=== PATIENT | male | born 1960 ===

== ENCOUNTER 2017-01-01 17:24 | Emergency (ER) | payer BC, OTHER ==
[2017-01-01 17:24] VITALS: BMI 26.6
--- NOTE | 2017-01-01 19:36 | C.PDOC ---
History Of Present Illness Patient presents with dull throbbing headache, mild photophobia. Has had similar symptoms about 3 weeks, for which he was worked up, including a negative head ct. Pt in 01/07 discomfort. Speaking in complete sentences, no neurological deficit Time Seen by Provider: 01/01/17 19:35 Chief Complaint (Nursing): Headache History Per: Patient History/Exam Limitations: no limitations Onset/Duration Of Symptoms: Days Current Symptoms Are (Timing): Still Present Severity: Moderate Pain Scale Rating Of: 4 Quality: Dull Preceeding Symptoms: None Associated Symptoms: Photophobia (mild) Recent travel outside of the [place]: No Additional History Per: Patient Past Medical History Reviewed: Historical Data, Nursing Documentation, Vital Signs Vital Signs: Last Vital Signs Temp 98.6 F 01/01/17 20:43 Pulse 82 01/01/17 20:43 Resp 16 01/01/17 20:43 BP 155/83 H 01/01/17 20:43 Pulse Ox 99 01/01/17 20:43 - Medical History PMH: Diabetes, HTN, Hypercholesterolemia Denies: Chronic Kidney Disease Family History: States: No Known Family Hx - Social History Hx Tobacco Use: No Hx Alcohol Use: Yes Hx Substance Use: No - Immunization History Hx Tetanus Toxoid Vaccination: No Hx Influenza Vaccination: No Hx Pneumococcal Vaccination: No Review Of Systems Constitutional: Negative for: Fever, Chills Eyes: Negative for: Redness (r eye only) Cardiovascular: Negative for: Chest Pain Respiratory: Negative for: Shortness of Breath Gastrointestinal: Negative for: Nausea, Vomiting Genitourinary: Negative for: Dysuria Musculoskeletal: Negative for: Back Pain Skin: Negative for: Rash, Lesions, Jaundice, Bruising Neurological: Positive for: Headache. Negative for: Weakness Psych: Negative for: Anxiety Physical Exam - Physical Exam Appears: Non-toxic, No Acute Distress Skin: Warm, Dry Eye(s): right: Normal Inspection, PERRL, EOMI, left: Other (blind due to trauma) Oral Mucosa: Moist Neck: Supple Chest: Symmetrical Cardiovascular: Rhythm Regular Respiratory: No Rales, No Rhonchi, No Wheezing Gastrointestinal/Abdominal: Soft, No Tenderness Extremity: Normal ROM Extremity: Bilateral: Atraumatic, Normal Color And Temperature, Normal ROM Neurological/Psych: Oriented x3, Normal Speech, Normal Cognition Gait: Steady ED Course And Treatment - Laboratory Results Result Diagrams: 01/01/17 20:29 01/01/17 20:29 O2 Sat by Pulse Oximetry: 100 Pulse Ox Interpretation: Normal Progress Note: blood work, ivf, steroids, toradol Reevaluation Time: 21:09 Reassessment Condition: Improved Medical Decision Making Medical Decision Making: Upon provider reevaluation patient is feeling better, is medically stable, and requires no further treatment in the ED at this time. Patient will be discharged home with Rx for zofran . Counseling was provided and all questions were answered regarding diagnosis and need for follow up with dr rajput. There is agreement to discharge plan. Return if symptoms persist or worsen. Disposition Counseled Patient/Family Regarding: Studies Performed, Diagnosis, Need For Followup, Rx Given - Disposition Referrals: Rachel Frey MD [Non-Staff] - Disposition: HOME/ ROUTINE Disposition Time: 19:35 Condition: FAIR Additional Instructions: Please return if symptoms recur Prescriptions: Ondansetron ODT [Zofran ODT] 1 odt PO TID #10 odt Instructions: Migraine Headache (ED) - Clinical Impression Clinical Impression: Migraine
[2017-01-01] MEDS ORDERED: Sodium Chloride 0.9% 1,000 ML IV ONE (20:00)
[2017-01-01] MEDS ORDERED: Sodium Chloride 0.9% 1,000 ML ONE (20:09)
[2017-01-01 20:35] LABS: BASO # 0.1 K/uL (0.0-0.2); EOS # 0.1 K/uL (0.0-0.7); EOS % 2.2 % (0.0-4.0); HEMATOCRIT 38.6 % (35.0-51.0); LYMPH # 1.8 K/uL (1.0-4.3); LYMPH % 31.4 % (20.0-40.0); MEAN CORPUSCULAR HEMOGLOBIN 28.7 pg (27.0-31.0); MEAN CORPUSCULAR HGB CONC 33.8 g/dL (33.0-37.0); MEAN PLATELET VOLUME 8.2 fL (7.2-11.7); MONO # 0.4 K/uL (0.0-0.8); MONO % 6.2 % (0.0-10.0); RED CELL DISTRIBUTION WIDTH 13.4 % (11.5-14.5); WHITE BLOOD COUNT 5.8 K/uL (4.8-10.8)
[2017-01-01 20:42] LABS: RBC URINE < 1 /hpf (0-3); URINE BILIRUBIN NEGATIVE (NEGATIVE); URINE BLOOD NEGATIVE (NEGATIVE); URINE COLOR Straw (YELLOW); URINE GLUCOSE (UA) 3+ mg/dL (Normal); URINE KETONE NEGATIVE (NEGATIVE); URINE LEUKOCYTE ESTERASE NEG Leu/uL (Negative); URINE PROTEIN NEGATIVE (NEGATIVE); URINE UROBILINOGEN NORMAL mg/dL (0.2-1.0); WBC URINE < 1 /hpf (0-5)
[2017-01-01 20:46] VITALS: PULSE 82; RESP 16; TEMP 98.6
[2017-01-01 20:54] LABS: CHLORIDE 92 mmol/L (98-107)
[2017-01-01 20:55] LABS: POTASSIUM 4.1 mmol/L (3.6-5.2); SODIUM 132 mmol/L (132-148)
[2017-01-01 20:57] LABS: ALB/GLOB RATIO 1.5 (1.0-2.1); AST/SGOT 44 U/L (17-59); BILIRUBIN,TOTAL 0.5 mg/dL (0.2-1.3); CARBON DIOXIDE 24 mmol/L (22-30); GFR AFRICAN-AMERICAN > 60; TOTAL PROTEIN 7.4 g/dL (6.3-8.3)
[2017-01-01 20:58] LABS: ALKALINE PHOSPHATASE 64 U/L (38-126); ALT/SGPT 29 U/L (21-72); BLOOD UREA NITROGEN 15 mg/dL (9-20); CALCIUM 9.8 mg/dl (8.6-10.4); GLUCOSE,RANDOM 228 mg/dL (75-110)
[2017-01-01 21:12] VITALS: O2SAT 100
[2017-01-01 21:28] VITALS: BP 142/71
== END 2017-01-01 21:28 | disposition home or self-care (01) ==
LOC: C.ER 17:24
DX: G43.909 Migraine, unspecified, not intractable, without status migrainosus (principal)
CPT/HCPCS: 80053; 81001; 85025; 96361; 96374; 96375; 99285; J1885; J2930; J7040

== ENCOUNTER 2017-02-25 00:47 | Observation (INO) | payer MEDICAID, OTHER ==
[2017-02-25 00:48] VITALS: BMI 26.6
[2017-02-25] MEDS ORDERED: Sodium Chloride 0.9% 1,000 ML IV ONE ×2 (01:38→03:42)
--- NOTE | 2017-02-25 01:39 | C.PDOC ---
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 Pt states when he checked his blood sugar and was low so he ate food. Pt also c/o intermittent SOB on exertion for the past 2 weeks. Pt describe it as chest tight and SOB "like climbing up a hill". Pt denies chest pain sob, palpitation diarrhea, fever, chills, or any other complaints. (Rachel Person) <Rene Coleman - Last Filed: 02/25/17 02:29> History Per: Patient History/Exam Limitations: no limitations Onset/Duration Of Symptoms: Hrs Current Symptoms Are (Timing): Still Present Severity: Mild Recent travel outside of the [place]: No Additional History Per: Patient <Rachel Person - Last Filed: 02/25/17 04:58> Time Seen by Provider: 02/25/17 01:15 Chief Complaint (Nursing): High Blood Sugar Past Medical History Reviewed: Historical Data, Nursing Documentation, Vital Signs - Medical History PMH: Diabetes, HTN, Hypercholesterolemia Denies: Chronic Kidney Disease Family History: States: Unknown Family Hx - Social History Hx Tobacco Use: No Hx Alcohol Use: Yes Hx Substance Use: No - Immunization History Hx Tetanus Toxoid Vaccination: No Hx Influenza Vaccination: No Hx Pneumococcal Vaccination: No <Rachel Person - Last Filed: 02/25/17 04:58> Vital Signs: Last Vital Signs Temp 98 F 02/25/17 04:20 Pulse 94 H 02/25/17 04:20 Resp 18 02/25/17 04:20 BP 155/81 H 02/25/17 04:20 Pulse Ox 100 02/25/17 04:20 Review Of Systems Except As Marked, All Systems Reviewed And Found Negative. Constitutional: Positive for: Sweats, Weakness. Negative for: Fever, Chills Cardiovascular: Negative for: Chest Pain, Palpitations Respiratory: Positive for: SOB with Excertion. Negative for: Shortness of Breath Gastrointestinal: Negative for: Diarrhea <Rachel Person - Last Filed: 02/25/17 04:58> Physical Exam - Physical Exam Appears: Non-toxic, No Acute Distress Skin: Warm, Dry Head: Atraumatic, Normacephalic Eye(s): bilateral: Normal Inspection Neck: Trachea Midline, Supple Chest: Symmetrical Cardiovascular: Rhythm Regular Respiratory: Normal Breath Sounds, No Rales, No Rhonchi, No Wheezing Gastrointestinal/Abdominal: Soft, No Tenderness Extremity: No Pedal Edema, Capillary Refill (<2secs), No Deformity, No Swelling Neurological/Psych: Oriented x3, Normal Speech, Normal Cognition Gait: Steady <Rachel Person - Last Filed: 02/25/17 04:58> ED Course And Treatment - Laboratory Results Result Diagrams: 02/25/17 01:57 02/25/17 01:57 ECG: Interpreted By Me, Viewed By Me ECG Rhythm: Sinus Rhythm (104), Nonspecific Changes Pulse Ox Interpretation: Normal <Rene Coleman - Last Filed: 02/25/17 02:29> - Laboratory Results Result Diagrams: 02/25/17 01:57 02/25/17 01:57 ECG: Interpreted By Me, Viewed By Me ECG Rhythm: Sinus Rhythm, Nonspecific Changes O2 Sat by Pulse Oximetry: 98 Pulse Ox Interpretation: Normal Progress Note: Impression: 56 y/o male c/o gen weakness 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 Plans: EKG, CXR, IV fluids. On re-eavluation, pt reamined uncahnged. repeat FSBS 314. Blood work revie and appears abnormal. Case discussed with ED attending and admission recommend. Case discussed with pt's PMD and admission arranged. results review and plan discussed with pt, agrees with plan. <Rachel Person - Last Filed: 02/25/17 04:58> Disposition <Rene Coleman - Last Filed: 02/25/17 02:29> - Disposition Disposition Time: 04:03 <Rachel Person - Last Filed: 02/25/17 04:58> - Disposition Disposition: HOSPITALIZED Condition: STABLE - Clinical Impression Clinical Impression: Chest pain, Poorly controlled diabetes mellitus, HTN (hypertension) <Rene Coleman - Last Filed: 02/25/17 02:29> - Scribe Statement The provider has reviewed the documentation as recorded by the Scribe <Rachel Person - Last Filed: 02/25/17 04:58> - Scribe Statement Heraclio figueroaa All medical record entries made by the Scribe were at my direction and personally dictated by me. I have reviewed the chart and agree that the record accurately reflects my personal performance of the history, physical exam, medical decision making, and the department course for this patient. I have also personally directed, reviewed, and agree with the discharge instructions and disposition. (Rachel Person)
[2017-02-25] MEDS ORDERED: Sodium Chloride 0.9% 1,000 ML ONE ×3 (01:48→04:39)
[2017-02-25 02:11] LABS: BASO # 0.1 K/uL (0.0-0.2); BASO % 1.1 % (0.0-2.0); EOS # 0.3 K/uL (0.0-0.7); EOS % 4.7 % (0.0-4.0); HEMATOCRIT 37.8 % (35.0-51.0); INR 0.9; LYMPH # 2.1 K/uL (1.0-4.3); LYMPH % 28.8 % (20.0-40.0); MEAN CELL VOLUME 86.2 fL (80.0-94.0); MEAN CORPUSCULAR HEMOGLOBIN 31.2 pg (27.0-31.0); MEAN CORPUSCULAR HGB CONC 36.2 g/dL (33.0-37.0); MEAN PLATELET VOLUME 8.8 fL (7.2-11.7); MONO # 0.5 K/uL (0.0-0.8); MONO % 6.4 % (0.0-10.0); NRBC % 0.1 % (0.0-2.0); RED CELL DISTRIBUTION WIDTH 13.1 % (11.5-14.5); WHITE BLOOD COUNT 7.2 K/uL (4.8-10.8)
[2017-02-25 02:12] LABS: CHLORIDE 94 mmol/L (98-107)
[2017-02-25 02:13] LABS: POTASSIUM 5.2 mmol/L (3.6-5.2); SODIUM 130 mmol/L (132-148)
[2017-02-25 02:16] LABS: ALB/GLOB RATIO 1.2 (1.0-2.1); ALKALINE PHOSPHATASE 60 U/L (38-126); ALT/SGPT 22 U/L (21-72); AST/SGOT 36 U/L (17-59); BILIRUBIN,TOTAL 1.3 mg/dL (0.2-1.3); BLOOD UREA NITROGEN 25 mg/dL (9-20); CARBON DIOXIDE 23 mmol/L (22-30); GFR AFRICAN-AMERICAN > 60; GLUCOSE,RANDOM 185 mg/dL (75-110); TOTAL PROTEIN 7.5 g/dL (6.3-8.3)
[2017-02-25 02:17] LABS: MAGNESIUM 1.5 mg/dL (1.6-2.3)
[2017-02-25 02:47] LABS: THYROID STIMULATING HORMONE 3.23 mIU/L (0.46-4.68)
[2017-02-25 02:47] LABS: URINE BILIRUBIN NEGATIVE (NEGATIVE); URINE BLOOD NEGATIVE (NEGATIVE); URINE COLOR Straw (YELLOW); URINE GLUCOSE (UA) 3+ mg/dL (Normal); URINE KETONE TRACE mg/dL (NEGATIVE); URINE LEUKOCYTE ESTERASE NEG Leu/uL (Negative); URINE PROTEIN NEGATIVE (NEGATIVE); URINE UROBILINOGEN NORMAL mg/dL (0.2-1.0)
--- NOTE | 2017-02-25 07:22 | CP.PCM.HP ---
<Dominick Patel - Last Filed: 02/25/17 08:05> History of Present Illness - History of Present Illness History of Present Illness: HPI: Patient is a 56 yo male, with PMHx of HTN, DM 2, Left Eye Blindness, Glaucoma, Hyperlipidemia, who presents to the [facility] Room with chief complaints of chest pain and abnormal blood glucose. He reports the chest pain began a week ago. At the time he was walking up a hill, when he began to feel a "sharp, pressure-like pain" in the center of his chest that lasted for "30 seconds to a minute" then dissipated on its own with rest. He describes the pain as 8-9/10 on the severity scale, that was associated with SOB and diaphoresis, but did not radiate. Patient had this pain earlier this morning and it was more intense this time." He reports history of similar chest pain, but is poor historian and does not remember when cardiac cath/stress test were performed, nor what the findings were. 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 He began to feel nauseous and sweaty, so he checked it again and this time the BG was 120. He admits being afraid that his sugar was so low so he ate "a lot of sweets." He continued to feel anxious, and diaphroetic so he came to the hospital. He reports taking an ASA 325mg at home before coming to the hospital. Currently there is no chest discomfort in substernal area, NO palpitations, NO shortness of breath, NO dysphagia/odynophagia, NO abdominal pain, NO n/v/d/c, NO paresthesias, NO changes in vision (history of Left Eye Blindness), NO changes in hearing, NO edema, NO lightheadedness/dizziness, NO headaches, NO rashes. PMD: [place] PMHx: HTN, DM 2, Left Eye Blindness, Glaucoma, Hyperlipidemia. PSHx: Left Eye Surgery in 2012 ("Filter in left eye" was placed). 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 absent: Dyspnea - Respiratory Respiratory: Dyspnea on Exertion. absent: Cough - Gastrointestinal Gastrointestinal: absent: Abdominal Pain, Nausea, Vomiting - Genitourinary Genitourinary: absent: Dysuria - Musculoskeletal Musculoskeletal: absent: Back Pain, Numbness, Tingling - Integumentary Integumentary: absent: Dry Skin - Neurological Neurological: absent: Tingling, Weakness - Psychiatric Psychiatric: absent: Anxiety, Depression Past Patient History - Infectious Disease Hx of Infectious Diseases: None - Tetanus Immunizations Tetanus Immunization: Unknown - Past Medical History & Family History Past Medical History?: Yes - Past Social History Smoking Status: Never Smoked - CARDIAC Hx Hypercholesterolemia: Yes Hx Hypertension: Yes - PULMONARY Hx Respiratory Disorders: No - NEUROLOGICAL Hx Neurological Disorder: No - HEENT Hx HEENT Problems: Yes Hx Glaucoma: Yes (LEFT EYE ON EYEDROPS) - RENAL Hx Chronic Kidney Disease: No - ENDOCRINE/METABOLIC Hx Endocrine Disorders: Yes Hx Diabetes Mellitus Type 2: Yes (ON JANUMET) - HEMATOLOGICAL/ONCOLOGICAL Hx Blood Disorders: No - INTEGUMENTARY Hx Dermatological Problems: No - MUSCULOSKELETAL/RHEUMATOLOGICAL Hx Musculoskeletal Disorders: No - GASTROINTESTINAL Hx Gastrointestinal Disorders: No - GENITOURINARY/GYNECOLOGICAL Hx Genitourinary Disorders: No - PSYCHIATRIC Hx Substance Use: No - SURGICAL HISTORY Hx Surgeries: Yes Hx Eye Surgery: Yes (GLAUCOMA LAST YEAR) - ANESTHESIA Hx Anesthesia: Yes Hx Anesthesia Reactions: No Hx Malignant Hyperthermia: No Meds Allergies/Adverse Reactions: Allergies Allergy/AdvReac Type Severity Reaction Status Date / Time shrimp Allergy Mild RASH Verified 02/25/17 01:07 Physical Exam - Constitutional Appears: Non-toxic, No Acute Distress - Head Exam Head Exam: ATRAUMATIC, NORMAL INSPECTION, NORMOCEPHALIC - Eye Exam Eye Exam: EOMI Pupil Exam: PERRL - ENT Exam ENT Exam: Mucous Membranes Moist - Neck Exam Neck exam: Positive for: Normal Inspection. Negative for: Tenderness - Respiratory Exam Respiratory Exam: Clear to Auscultation Bilateral, NORMAL BREATHING PATTERN. absent: Rales, Rhonchi, Wheezes - Cardiovascular Exam Cardiovascular Exam: REGULAR RHYTHM - GI/Abdominal Exam GI & Abdominal Exam: Normal Bowel Sounds, Soft. absent: Tenderness - Extremities Exam Extremities exam: Positive for: normal inspection, pedal pulses present. Negative for: pedal edema - Neurological Exam Neurological exam: Alert, Oriented x3 - Psychiatric Exam Psychiatric exam: Normal Affect, Normal Mood - Skin Skin Exam: Normal Color, Warm Results - Vital Signs Recent Vital Signs: Last Vital Signs Temp 98 F 02/25/17 04:20 Pulse 74 02/25/17 06:27 Resp 18 02/25/17 06:27 BP 154/85 H 02/25/17 06:27 Pulse Ox 100 02/25/17 06:27 - Labs Result Diagrams: 02/25/17 01:57 02/25/17 01:57 Labs: Laboratory Results - last 24 hr 02/25/17 04:34 POC Glucose (mg/dL) 314 H Assessment & Plan - Assessment and Plan (Free Text) Assessment: 56 yo male, with PMHx of HTN, DM 2, Left Eye Blindness, Glaucoma, Hyperlipidemia, presenting with self reported hypoglycemia, now hyperglycemic in ED. Also reporting CP/dyspnea on exertion. Plan: (1) Chest pain Admit as observation to tele EKG: Sinus Tach, No ST/T wave changes, f/u 2 additional Q6H Troponin: negative x 1, f/u 2 additional Q6H Hold BB until UDS returns: pt has hx of cocaine use Oxygen 2L PRN Cardio consult: Dr. Ledezma, help appreciated Continue home meds: Crestor 10mg PO HS (substituted for home lipitor) BB on hold until UDS return Enalapril 5mg PO Daily ASA 325mg once at pt home, continue 81mg Daily f/u UDS, ECHO, TSH, HgbA1C, fating lipid panel DM type 2 (diabetes mellitus, type 2) Accuchecks ACHS Metformin 1000mg PO BID R-ISS f/u A1C HTN (hypertension) HTN in ED, monitor Enalapril 5mg PO Daily No BB until UDS returns Hyperlipidemia Crestor 10mg PO HS f/u fasting cholesterol panel Electrolyte abnormalities Mg 1.5 on AM; repleted f/u CMP in AM History of cocaine use F/u UDS Prophylactic measure Pepcid 20mg PO BID SCDs Heparin 5000u Q12H <MariannePerez - Last Filed: 02/25/17 13:33> Results - Vital Signs Recent Vital Signs: Last Vital Signs Temp 98.2 F 02/25/17 08:13 Pulse 84 02/25/17 11:42 Resp 18 02/25/17 11:42 BP 143/75 02/25/17 11:42 Pulse Ox 100 02/25/17 11:42 - Labs Result Diagrams: 02/25/17 01:57 02/25/17 01:57 Labs: Laboratory Results - last 24 hr 02/25/17 02/25/17 02/25/17 04:34 08:29 08:29 POC Glucose (mg/dL) 314 H Total Creatine Kinase 92 CK-MB (Mass) 1.69 Troponin I, Quant < 0.0120 Urine Opiates Screen Negative Urine Methadone Screen Negative Ur Barbiturates Screen Negative Ur Phencyclidine Scrn Negative Ur Amphetamines Screen Negative U Benzodiazepines Scrn Negative U Oth Cocaine Metabols Positive U Cannabinoids Screen Negative 02/25/17 11:27 POC Glucose (mg/dL) 329 H Total Creatine Kinase CK-MB (Mass) Troponin I, Quant Urine Opiates Screen Urine Methadone Screen Ur Barbiturates Screen Ur Phencyclidine Scrn Ur Amphetamines Screen U Benzodiazepines Scrn U Oth Cocaine Metabols U Cannabinoids Screen Attending/Attestation - Attestation I have personally seen and examined this patient.: Yes I have fully participated in the care of the patient.: Yes I have reviewed all pertinent clinical information: Yes Notes (Text): 02/25/17 13:29 Medical Attending: Patient was seen and examined by me. There is already an HP for today's date of 02/25, I came and saw patient on 6th floor. He is now chest pain free, and he reports breathing is ok as well. Two cardiac enzymes have been negative. The EKG was 70 NSR, there was not any elevation or depression of the ST areas, We talked about the patient's + cocaine and he immediately became very quiet. I asked him very gently but he continued to deny taking cocaine. At this time avoid all BB for the time being. An echo has been ordered and is pending, agree with this. Perez Lopes
[2017-02-25] MEDS ORDERED: Magnesium Sulfate 1 gm in D5W 2 GM/200 ML BAG IVPB ONE (08:01)
[2017-02-25] MEDS: Magnesium Sulfate 1 gm in D5W 1 GM/100 ML BAG IVPB SCH ×2 (08:10→08:47)
[2017-02-25] MEDS ORDERED: Home Med 1 UNIT (Metformin [Glucophage] 1,000 MG) PO SCH (10:00)
--- NOTE | 2017-02-25 11:00 | RAD ---
HISTORY: Shortness of breath. COMPARISON: June 13, 2014. TECHNIQUE: Chest PA and lateral FINDINGS: LUNGS: No active pulmonary disease. PLEURA: No significant pleural effusion identified. No pneumothorax apparent. CARDIOVASCULAR: No radiographic findings to suggest acute or significant cardiovascular disease. OSSEOUS STRUCTURES: No significant abnormalities. VISUALIZED UPPER ABDOMEN: Normal. OTHER FINDINGS: None. IMPRESSION: No active disease. No significant interval change compared to the prior examination(s).
[2017-02-25] MEDS: (Novolin R) Insulin Human Regular 100 units/ml vial SC SCH ×4 (11:33→22:22)
[2017-02-25] MEDS ORDERED: (Novolin R) Insulin Human Regular 100 units/ml vial ONE (11:37)
[2017-02-25 16:38] VITALS: O2SAT 98
[2017-02-25] MEDS ORDERED: Magnesium Hydroxide Susp 30 ml UD PO ONE (20:39)
[2017-02-26 01:57] VITALS: RESP 20
[2017-02-26 07:24] LABS: BASO # 0.1 K/uL (0.0-0.2); BASO % 1.6 % (0.0-2.0); EOS # 0.2 K/uL (0.0-0.7); EOS % 3.8 % (0.0-4.0); LYMPH # 1.9 K/uL (1.0-4.3); LYMPH % 38.8 % (20.0-40.0); MEAN CELL VOLUME 86.1 fL (80.0-94.0); MEAN CORPUSCULAR HEMOGLOBIN 29.5 pg (27.0-31.0); MEAN CORPUSCULAR HGB CONC 34.3 g/dL (33.0-37.0); MEAN PLATELET VOLUME 8.2 fL (7.2-11.7); MONO # 0.4 K/uL (0.0-0.8); MONO % 7.3 % (0.0-10.0); RED CELL DISTRIBUTION WIDTH 12.8 % (11.5-14.5); WHITE BLOOD COUNT 4.9 K/uL (4.8-10.8)
[2017-02-26 07:37] LABS: CHLORIDE 97 mmol/L (98-107); SODIUM 132 mmol/L (132-148)
[2017-02-26 07:38] LABS: POTASSIUM 4.6 mmol/L (3.6-5.2)
[2017-02-26 07:39] LABS: CHOLESTEROL 307 mg/dL (0-199); GFR AFRICAN-AMERICAN > 60
[2017-02-26 07:40] LABS: ALB/GLOB RATIO 1.4 (1.0-2.1); ALKALINE PHOSPHATASE 59 U/L (38-126); ALT/SGPT 30 U/L (21-72); AST/SGOT 25 U/L (17-59); BILIRUBIN,TOTAL 0.6 mg/dL (0.2-1.3); BLOOD UREA NITROGEN 16 mg/dL (9-20); CALCIUM 9.1 mg/dl (8.6-10.4); CARBON DIOXIDE 28 mmol/L (22-30); GLUCOSE,RANDOM 234 mg/dL (75-110); PHOSPHOROUS 4.3 mg/dL (2.5-4.5); TOTAL PROTEIN 6.9 g/dL (6.3-8.3)
[2017-02-26 07:41] LABS: MAGNESIUM 2.1 mg/dL (1.6-2.3)
[2017-02-26] MEDS: (Novolin R) Insulin Human Regular 100 units/ml vial SC SCH ×2 (08:10→12:20)
[2017-02-26 08:41] VITALS: BP 147/77; PULSE 72; TEMP 97.8
--- NOTE | 2017-02-26 11:33 | CP.PCM.DIS ---
<MikeLisandra - Last Filed: 02/26/17 12:16> Provider - Provider Date of Admission: 02/25/17 04:24 Attending physician: Simon Boothe MD Primary care physician: Dr. Frey Consults: Dr. Washington Ledezma - cardiology Time Spent in preparation of Discharge (in minutes): 35 Diagnosis - Discharge Diagnosis (1) Cocaine abuse Status: Acute Comment: avoid BBlock (2) Poorly controlled diabetes mellitus Status: Acute Comment: Metformin, stain, ruby inhibitor. check suagrs daily. f/u PCP (3) Chest pain Status: Acute Comment: Resolved. need outpatient stress test Hospital Course - Lab Results Lab Results: Most Recent Lab Values WBC 4.9 K/uL (4.8-10.8) 02/26/17 07:08 RBC 4.65 Mil/uL (4.40-5.90) 02/26/17 07:08 Hgb 13.7 g/dL (12.0-18.0) 02/26/17 07:08 Hct 40.0 % (35.0-51.0) 02/26/17 07:08 MCV 86.1 fL (80.0-94.0) 02/26/17 07:08 MCH 29.5 pg (27.0-31.0) 02/26/17 07:08 MCHC 34.3 g/dL (33.0-37.0) 02/26/17 07:08 RDW 12.8 % (11.5-14.5) 02/26/17 07:08 Plt Count 222 K/uL (130-400) 02/26/17 07:08 MPV 8.2 fL (7.2-11.7) 02/26/17 07:08 Neut % (Auto) 48.5 % (50.0-75.0) L 02/26/17 07:08 Lymph % (Auto) 38.8 % (20.0-40.0) 02/26/17 07:08 [place] % (Auto) 7.3 % (0.0-10.0) 02/26/17 07:08 Eos % (Auto) 3.8 % (0.0-4.0) 02/26/17 07:08 Baso % (Auto) 1.6 % (0.0-2.0) 02/26/17 07:08 Neut # 2.4 K/uL (1.8-7.0) 02/26/17 07:08 Lymph # 1.9 K/uL (1.0-4.3) 02/26/17 07:08 [place] # 0.4 K/uL (0.0-0.8) 02/26/17 07:08 Eos # 0.2 K/uL (0.0-0.7) 02/26/17 07:08 Baso # 0.1 K/uL (0.0-0.2) 02/26/17 07:08 PT 9.6 SECONDS (9.7-12.2) L 02/25/17 01:57 INR 0.9 02/25/17 01:57 APTT 27 SECONDS (21-34) 02/25/17 01:57 Sodium 132 mmol/L (132-148) 02/26/17 07:08 Potassium 4.6 mmol/L (3.6-5.2) 02/26/17 07:08 Chloride 97 mmol/L (98-107) L 02/26/17 07:08 Carbon Dioxide 28 mmol/L (22-30) 02/26/17 07:08 Anion Gap 12 (10-20) 02/26/17 07:08 BUN 16 mg/dL (9-20) 02/26/17 07:08 Creatinine 1.1 MG/DL (0.8-1.5) 02/26/17 07:08 Est GFR ( Amer) > 60 02/26/17 07:08 Est GFR (Non-Af Amer) > 60 02/26/17 07:08 POC Glucose (mg/dL) 329 mg/dL (65-110) H 02/26/17 11:17 Random Glucose 234 mg/dL (75-110) H 02/26/17 07:08 Hemoglobin A1c 10.0 % (4.2-6.5) H 02/26/17 11:20 Calcium 9.1 mg/dl (8.6-10.4) 02/26/17 07:08 Phosphorus 4.3 mg/dL (2.5-4.5) 02/26/17 07:08 Magnesium 2.1 mg/dL (1.6-2.3) 02/26/17 07:08 Total Bilirubin 0.6 mg/dL (0.2-1.3) 02/26/17 07:08 AST 25 U/L (17-59) 02/26/17 07:08 ALT 30 U/L (21-72) 02/26/17 07:08 Alkaline Phosphatase 59 U/L (38-126) 02/26/17 07:08 Total Creatine Kinase 77 U/L (55-170) 02/25/17 15:00 CK-MB (Mass) 1.47 ng/mL (0.0-3.38) 02/25/17 15:00 Troponin I 0.0260 ng/mL (0.00-0.120) 02/25/17 01:57 Troponin I, Quant < 0.0120 ng/mL (0.00-0.120) 02/25/17 15:00 NT-Pro-B Natriuret Pep 35.7 pg/mL (0-900) 02/25/17 01:57 Total Protein 6.9 g/dL (6.3-8.3) 02/26/17 07:08 Albumin 4.0 g/dL (3.5-5.0) 02/26/17 07:08 Globulin 2.9 gm/dL (2.2-3.9) 02/26/17 07:08 Albumin/Globulin Ratio 1.4 (1.0-2.1) 02/26/17 07:08 Triglycerides 1087 mg/dL (0-149) H 02/26/17 07:08 Cholesterol 307 mg/dL (0-199) H 02/26/17 07:08 LDL Cholesterol Direct 108 mg/dL (0-129) 02/26/17 07:08 HDL Cholesterol 40 mg/dL (30-70) 02/26/17 07:08 TSH 3rd Generation 3.23 mIU/L (0.46-4.68) 02/25/17 01:57 Urine Color Straw (YELLOW) 02/25/17 02:39 Urine Clarity Clear (Clear) 02/25/17 02:39 Urine pH 5.0 (5.0-8.0) 02/25/17 02:39 Ur Specific [place] 1.010 (1.003-1.030) 02/25/17 02:39 Urine Protein Negative mg/dL (NEGATIVE) 02/25/17 02:39 Urine Glucose (UA) 3+ mg/dL (Normal) H 02/25/17 02:39 Urine Ketones Trace mg/dL (NEGATIVE) 02/25/17 02:39 Urine Blood Negative (NEGATIVE) 02/25/17 02:39 Urine Nitrate Negative (NEGATIVE) 02/25/17 02:39 Urine Bilirubin Negative (NEGATIVE) 02/25/17 02:39 Urine Urobilinogen Normal mg/dL (0.2-1.0) 02/25/17 02:39 Ur Leukocyte Esterase Neg Rosa/uL (Negative) 02/25/17 02:39 Urine Opiates Screen Negative (NEGATIVE) 02/25/17 08:29 Urine Methadone Screen Negative (NEGATIVE) 02/25/17 08:29 Ur Barbiturates Screen Negative (NEGATIVE) 02/25/17 08:29 Ur Phencyclidine Scrn Negative (NEGATIVE) 02/25/17 08:29 Ur Amphetamines Screen Negative (NEGATIVE) 02/25/17 08:29 U Benzodiazepines Scrn Negative (NEGATIVE) 02/25/17 08:29 U Oth Cocaine Metabols Positive (NEGATIVE) 02/25/17 08:29 U Cannabinoids Screen Negative (NEGATIVE) 02/25/17 08:29 - Hospital Course Hospital Course: On Admission: Patient is a 56 yo male, with PMHx of HTN, DM 2, Left Eye Blindness, Glaucoma, Hyperlipidemia, who presents to the [facility] Emergency Room with chief complaints of chest pain and abnormal blood glucose. He reports the chest pain began a week ago. At the time he was walking up a hill , when he began to feel a "sharp, pressure-like pain" in the center of his chest that lasted for "30 seconds to a minute" then dissipated on its own with rest. He describes the pain as 8-9/10 on the severity scale, that was associated with SOB and diaphoresis, but did not radiate. Patient had this pain earlier this morning and it was more intense this time." He reports history of similar chest pain, but is poor historian and does not remember when cardiac cath/stress test were performed, nor what the findings were. 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 He began to feel nauseous and sweaty, so he checked it again and this time the BG was 120. He admits being afraid that his sugar was so low so he ate "a lot of sweets." He continued to feel anxious, and diaphroetic so he came to the hospital. He reports taking an ASA 325mg at home before coming to the hospital. Currently there is no chest discomfort in substernal area, NO palpitations, NO shortness of breath, NO dysphagia/odynophagia, NO abdominal pain, NO n/v/d/c, NO paresthesias, NO changes in vision (history of Left Eye Blindness), NO changes in hearing, NO edema, NO lightheadedness/dizziness, NO headaches, NO rashes. During Hospital Stay: Troponins and EKGs were normal x 3. Chest X ray showed no active disease. Echocardiogram was normal, no acute pathology. Cardiology was consulted and stated the patient should schedule a stress test to be done outpatient. Chest pain resolved. Patient's HbA1c was noted to be 10 and he had elevated blood sugar levels. Patient's pcp should consider starting another oral medications to help better control his diabetes. Patient was put on new medications as indicated (listed below). Patient was positive for cocaine in the urine although denies recent use and states "it happens" Patient is to stop using cocaine. BBlockers were avoided. Patient is stable for discharge home per cardiology. Patient is to follow up with his primary care Dr. Frey within one week of discharge for post hospital care. Patient is to be referred for an stress test to be done by cardiology outpatient. He is to take the following medications: Aspirin 81mg by mouth daily Metformin 1000mg by mouth twice a day Simvastatin 20mg by mouth at bedtime Enalapril 5mg by mouth daily Colace 100mg by mouth twice a day to help with constipation Fenofibrate 48 mg by mouth in the evening Prescriptions were sent to the patient's preferred pharmacy ([facility]). He was also given a script for test strips and lancets. Patient is to check his blood sugars 4 times and day and bring a log of his sugar levels to his primary care doctor upon follow up. Patient is to return if symptoms resumes. All instructions explained to the patient and he agrees. This is a summary of the hospital stay. Please refer to the EMR for full details. Discharge Exam - Head Exam Head Exam: ATRAUMATIC, NORMAL INSPECTION, NORMOCEPHALIC - Eye Exam Eye Exam: EOMI, PERRL Pupil Exam: NORMAL ACCOMODATION - Respiratory Exam Respiratory Exam: NORMAL BREATHING PATTERN, UNREMARKABLE. absent: Accessory Muscle Use, Rales, Rhonchi, Wheezes, Respiratory Distress - Cardiovascular Exam Cardiovascular Exam: REGULAR RHYTHM, +S1, +S2 - GI/Abdominal Exam GI & Abdominal Exam: Normal Bowel Sounds, Soft. absent: Distended, Firm, Guarding, Tenderness - Extremities Exam Extremities exam: normal inspection - Back Exam Back exam: NORMAL INSPECTION. absent: CVA tenderness (L), CVA tenderness (R), paraspinal tenderness - Neurological Exam Neurological exam: Alert, Normal Gait, Oriented x3 - Psychiatric Exam Psychiatric exam: Normal Affect, Normal Mood - Skin Skin Exam: Dry, Intact, Normal Color, Warm Discharge Plan - Discharge Medications Prescriptions: Docusate [Colace] 100 mg PO BID #60 cap Enalapril Maleate [Vasotec] 5 mg PO DAILY #30 tab Fenofibrate [Tricor] 48 mg PO QPM #30 tab MetFORMIN [glucoPHAGE] 1,000 mg PO BID #60 Simvastatin 20 mg PO HS #30 tablet - Follow Up Plan Condition: STABLE Disposition: HOME/ ROUTINE Instructions: Enalapril (By mouth), Laxative, Stool Softeners (By mouth), Simvastatin (By mouth), Metformin (By mouth), Fenofibrate (By mouth), Chest Pain (DC), Heart Healthy Diet (DC), Diabetic Foot Care (DC), Basic Carbohydrate Counting (DC), Meal Planning with the Plate Method (DC), Meal Planning with Diabetes Exchanges (DC), Hyperlipidemia (DC) Additional Instructions: Patient is stable for discharge home. Patient is to follow up with his primary care Dr. Frey within one week of discharge for post hospital care. Patient is to be referred for an stress test to be done by cardiology outpatient. He is to take the following medications: Aspirin 81mg by mouth daily Metformin 1000mg by mouth twice a day Simvastatin 20mg by mouth at bedtime Enalapril 5mg by mouth daily Colace 100mg by mouth twice a day to help with constipation Fenofibrate 48 mg by mouth in the evening [facility] He was also given a script for test strips and lancets. Patient is to check his blood sugars 4 times and day and bring a log of his sugar levels to his primary care doctor upon follow up. Patient is to return if symptoms resumes. All instructions explained to the patient and he agrees. Referrals: Washington Ledezma MD [Staff Provider] - <Perez Lopes - Last Filed: 02/27/17 14:50> Provider - Provider Date of Admission: 02/25/17 04:24 Attending physician: Simon Boothe MD Hospital Course - Lab Results Lab Results: Most Recent Lab Values WBC 4.9 K/uL (4.8-10.8) 02/26/17 07:08 RBC 4.65 Mil/uL (4.40-5.90) 02/26/17 07:08 Hgb 13.7 g/dL (12.0-18.0) 02/26/17 07:08 Hct 40.0 % (35.0-51.0) 02/26/17 07:08 MCV 86.1 fL (80.0-94.0) 02/26/17 07:08 MCH 29.5 pg (27.0-31.0) 02/26/17 07:08 MCHC 34.3 g/dL (33.0-37.0) 02/26/17 07:08 RDW 12.8 % (11.5-14.5) 02/26/17 07:08 Plt Count 222 K/uL (130-400) 02/26/17 07:08 MPV 8.2 fL (7.2-11.7) 02/26/17 07:08 Neut % (Auto) 48.5 % (50.0-75.0) L 02/26/17 07:08 Lymph % (Auto) 38.8 % (20.0-40.0) 02/26/17 07:08 [place] % (Auto) 7.3 % (0.0-10.0) 02/26/17 07:08 Eos % (Auto) 3.8 % (0.0-4.0) 02/26/17 07:08 Baso % (Auto) 1.6 % (0.0-2.0) 02/26/17 07:08 Neut # 2.4 K/uL (1.8-7.0) 02/26/17 07:08 Lymph # 1.9 K/uL (1.0-4.3) 02/26/17 07:08 [place] # 0.4 K/uL (0.0-0.8) 02/26/17 07:08 Eos # 0.2 K/uL (0.0-0.7) 02/26/17 07:08 Baso # 0.1 K/uL (0.0-0.2) 02/26/17 07:08 PT 9.6 SECONDS (9.7-12.2) L 02/25/17 01:57 INR 0.9 02/25/17 01:57 APTT 27 SECONDS (21-34) 02/25/17 01:57 Sodium 132 mmol/L (132-148) 02/26/17 07:08 Potassium 4.6 mmol/L (3.6-5.2) 02/26/17 07:08 Chloride 97 mmol/L (98-107) L 02/26/17 07:08 Carbon Dioxide 28 mmol/L (22-30) 02/26/17 07:08 Anion Gap 12 (10-20) 02/26/17 07:08 BUN 16 mg/dL (9-20) 02/26/17 07:08 Creatinine 1.1 MG/DL (0.8-1.5) 02/26/17 07:08 Est GFR ( Amer) > 60 02/26/17 07:08 Est GFR (Non-Af Amer) > 60 02/26/17 07:08 POC Glucose (mg/dL) 329 mg/dL (65-110) H 02/26/17 11:17 Random Glucose 234 mg/dL (75-110) H 02/26/17 07:08 Hemoglobin A1c 10.0 % (4.2-6.5) H 02/26/17 11:20 Calcium 9.1 mg/dl (8.6-10.4) 02/26/17 07:08 Phosphorus 4.3 mg/dL (2.5-4.5) 02/26/17 07:08 Magnesium 2.1 mg/dL (1.6-2.3) 02/26/17 07:08 Total Bilirubin 0.6 mg/dL (0.2-1.3) 02/26/17 07:08 AST 25 U/L (17-59) 02/26/17 07:08 ALT 30 U/L (21-72) 02/26/17 07:08 Alkaline Phosphatase 59 U/L (38-126) 02/26/17 07:08 Total Creatine Kinase 77 U/L (55-170) 02/25/17 15:00 CK-MB (Mass) 1.47 ng/mL (0.0-3.38) 02/25/17 15:00 Troponin I 0.0260 ng/mL (0.00-0.120) 02/25/17 01:57 Troponin I, Quant < 0.0120 ng/mL (0.00-0.120) 02/25/17 15:00 NT-Pro-B Natriuret Pep 35.7 pg/mL (0-900) 02/25/17 01:57 Total Protein 6.9 g/dL (6.3-8.3) 02/26/17 07:08 Albumin 4.0 g/dL (3.5-5.0) 02/26/17 07:08 Globulin 2.9 gm/dL (2.2-3.9) 02/26/17 07:08 Albumin/Globulin Ratio 1.4 (1.0-2.1) 02/26/17 07:08 Triglycerides 1087 mg/dL (0-149) H 02/26/17 07:08 Cholesterol 307 mg/dL (0-199) H 02/26/17 07:08 LDL Cholesterol Direct 108 mg/dL (0-129) 02/26/17 07:08 HDL Cholesterol 40 mg/dL (30-70) 02/26/17 07:08 TSH 3rd Generation 3.23 mIU/L (0.46-4.68) 02/25/17 01:57 Urine Color Straw (YELLOW) 02/25/17 02:39 Urine Clarity Clear (Clear) 02/25/17 02:39 Urine pH 5.0 (5.0-8.0) 02/25/17 02:39 Ur Specific [place] 1.010 (1.003-1.030) 02/25/17 02:39 Urine Protein Negative mg/dL (NEGATIVE) 02/25/17 02:39 Urine Glucose (UA) 3+ mg/dL (Normal) H 02/25/17 02:39 Urine Ketones Trace mg/dL (NEGATIVE) 02/25/17 02:39 Urine Blood Negative (NEGATIVE) 02/25/17 02:39 Urine Nitrate Negative (NEGATIVE) 02/25/17 02:39 Urine Bilirubin Negative (NEGATIVE) 02/25/17 02:39 Urine Urobilinogen Normal mg/dL (0.2-1.0) 02/25/17 02:39 Ur Leukocyte Esterase Neg Rosa/uL (Negative) 02/25/17 02:39 Urine Opiates Screen Negative (NEGATIVE) 02/25/17 08:29 Urine Methadone Screen Negative (NEGATIVE) 02/25/17 08:29 Ur Barbiturates Screen Negative (NEGATIVE) 02/25/17 08:29 Ur Phencyclidine Scrn Negative (NEGATIVE) 02/25/17 08:29 Ur Amphetamines Screen Negative (NEGATIVE) 02/25/17 08:29 U Benzodiazepines Scrn Negative (NEGATIVE) 02/25/17 08:29 U Oth Cocaine Metabols Positive (NEGATIVE) 02/25/17 08:29 U Cannabinoids Screen Negative (NEGATIVE) 02/25/17 08:29 Attending/Attestation - Attestation I have personally seen and examined this patient.: Yes I have fully participated in the care of the patient.: Yes I have reviewed all pertinent clinical information, including history, physical exam and plan: Yes Notes (Text): 02/27/17 14:48 Medical Attending: Patient was seen and examined by me. Agree with the above note by the resident. The patient will only talk to some people about the cocaine use. Reguardless we did not give any RX for BB as we do not feel comfortable giving him BB and patient taking cocaine. thank you Perez Lopes
--- NOTE | 2017-02-26 11:34 | CON ---
DATE: 02/26/2017 LOCATION: Room 669 B. REQUESTED BY: The hospitalist group. HISTORY OF PRESENT ILLNESS: Requested to see this 56-year-old male with a long history of h ypertension and diabetes, admitted with significant hyperglycemia, uncontrolled diabetes. Cardiac ev aluation requested due to not feeling well for the last several weeks, some slight fatigue when climb s hills; however, he is able to walk all day long without any problems. He denies any effort chest d iscomfort. No dizziness, no blackouts, no syncope. He denies any PND, orthopnea, or edema of lower extremities. SOCIAL HISTORY: He does not smoke, does not drink excessively. ALLERGIES: Denies any allergies. He goes to a physician in the area. MEDICATIONS: He takes medication "for diabetes and hypertension." Does not know the names or the do patria. REVIEW OF SYSTEMS: Except for the above, otherwise negative. PHYSICAL EXAMINATION: GENERAL: Alert, oriented, in no distress whatsoever. VITAL SIGNS: Relatively stable. He just came back from the echocardiogram lab. SKIN: Warm, dry, no cyanosis or edema. HEENT: Unremarkable for his age. NECK: Supple, no lymphadenopathy or thyromegaly, no bruits. CHEST: Lungs totally clear to auscultation. CARDIAC: Carotids and jugular veins are normal. Precordium is unremarkable. No thrill. Auscultati on reveals heart sounds normal in intensity, regular with minimal systolic ejection murmur at the lef t sternal border. ABDOMEN: Unremarkable. CENTRAL NERVOUS SYSTEM: Alert, oriented, no deficit. COMPLIMENTARY DATA: Available so far includes CBC and comprehensive metabolic profile which is nothi ng earth-shaking. Renal function normal. Potassium is normal. Initial troponin is negative. Two e lectrocardiograms reviewed by me personally in the chart are, in my opinion, unremarkable. No eviden ce of any ischemic changes. Chest x-ray: No acute cardiopulmonary pathology. I just reviewed the e chocardiogram which was done a few minutes ago showing normal biventricular function, no evidence of any wall motion abnormality in my opinion. Ejection fraction in the neighborhood of about 60-65. Th ere is a minimal degree of pulmonic as well as mitral regurgitation, hemodynamically insignificant. Left atrial pressure and diastolic function are both normal. IMPRESSION: 1. Hypertension. 2. Uncontrolled diabetes, cardiologically stable at this point. SUGGESTION: The patient is presently totally cardiologically stable. Once his hyperglycemia is well controlled, consider stress testing as an outpatient, regular. No need at this point in time to go into any nuclear imaging. He told me that he has had 2 stress tests done as an outpatient in the [facility] t which were all normal. Washington Ledezma MD cc: 68 TT: 02/26/2017 11:33:22 Confirmation # [id number] Dictation # [id number]
[2017-02-26] MEDS ORDERED: Pneumococcal 23-Valent Vaccine IM ONE (12:30)
--- NOTE | 2017-02-26 21:17 | CARD ---
APPROVED REPORT EXAM: Two-dimensional and M-mode echocardiogram with Doppler and color Doppler. Other Information Quality : GoodRhythm : INDICATION Chest Pain uncontrolled hyperglycemia hx of niddm cp RISK FACTORS Hypertension Hyperlipidemia Diabetes M-Mode DIMENSIONS RVDd2.19 (2.1-3.2cm)Left Atrium (MM)3.64 (2.5-4.0cm) IVSd0.73 (0.7-1.1cm)Aortic Root2.92 (2.2-3.7cm) LVDd5.10 (4.0-5.6cm)Aortic Cusp Exc.2.39 (1.5-2.0cm) PWd0.90 (0.7-1.1cm)FS (%) 39 % LVDs3.12 (2.0-3.8cm)LVEF (%)69 (>50%) Mitral Valve MV E Lutdjwdy29.4cm/sMV A Vetmmxbd24.8cm/sE/A ratio1.2 TDI E/Lateral E'0.0E/Medial E'0.0 LEFT VENTRICLE The left ventricle is normal size. There is normal left ventricular wall thickness. The left ventricular function is normal. The left ventricular ejection fraction is within the normal range. There is normal LV segmental wall motion. The left ventricular diastolic function is normal. RIGHT VENTRICLE The right ventricle is normal size. There is normal right ventricular wall thickness. The right ventricular systolic function is normal. ATRIA The left atrium size is normal. The right atrium size is normal. AORTIC VALVE The aortic valve is normal in structure. No aortic regurgitation is present. MITRAL VALVE The mitral valve is normal in structure. A borderline mitral valve prolapse is present. Mitral regurgitation is trace. GREAT VESSELS The aortic root is normal in size. The IVC is normal in size and collapses >50% with inspiration. PERICARDIAL EFFUSION There is a trace loculated anterior pericardial effusion. <Conclusion> The left ventricle is normal size. There is normal left ventricular wall thickness. The left ventricular function is normal. The left ventricular ejection fraction is within the normal range. There is normal LV segmental wall motion. The left ventricular diastolic function is normal.
--- NOTE | 2017-02-27 01:57 | CARD ---
APPROVED REPORT EKG Measurement Heart [id number] [place] [id number] <Conclusion> Normal sinus rhythm Minimal voltage criteria for LVH, may be normal variant Borderline ECG
--- NOTE | 2017-02-27 02:00 | CARD ---
APPROVED REPORT EKG Measurement Heart [id number] [place] [id number] <Conclusion> Normal sinus rhythm ST elevation, probably due to early repolarization Borderline ECG
--- NOTE | 2017-02-27 02:01 | CARD ---
APPROVED REPORT EKG Measurement Heart [id number] [place] [id number] <Conclusion> Sinus tachycardia Minimal voltage criteria for LVH, may be normal variant Borderline ECG
== END 2017-02-26 13:32 | disposition home or self-care (01) ==
LOC: C.ER 00:47 → C.9I 04:24 → C.9E 06:46 → C.6T 11:48
PROVIDERS: ADMIT Family Medicine; ATTEND Family Medicine
DX: E11.65 Type 2 diabetes mellitus with hyperglycemia (principal); E78.5 Hyperlipidemia, unspecified; F14.10 Cocaine abuse, uncomplicated; K59.00 Constipation, unspecified; Z79.84 Long term (current) use of oral hypoglycemic drugs; I10 Essential (primary) hypertension; Z23 Encounter for immunization
CPT/HCPCS: 36415; 71020; 80053; 80061; 81001; 82948; 83036; 83735; 83880; 84100; 84443; 84484; 85025; 85610; 85730; 90732; 93306; 96360; 96365; 96372; 99285; G0009; G0378; G0480; J1644; J3475; J7040